=== PATIENT | male | born 1965 | race Caucasian/White ===

== ENCOUNTER 2017-01-01 17:21 | Emergency (ER) | payer SELFPAY ==
[~2017-01-01] VITALS: Ht 182.9 cm; Wt 63.5 kg
[2017-01-01 17:31] VITALS: BP 154/78
== END 2017-01-01 17:52 | disposition home or self-care (01) ==
LOC: ER 17:22
DX: T65.891A Toxic effect of other specified substances, accidental (unintentional), initial encounter (principal); S60.512A Abrasion of left hand, initial encounter; S60.511A Abrasion of right hand, initial encounter; F17.200 Nicotine dependence, unspecified, uncomplicated; X58.XXXA Exposure to other specified factors, initial encounter; Y93.89 Activity, other specified; Y92.89 Other specified places as the place of occurrence of the external cause; Y99.9 Unspecified external cause status
CPT/HCPCS: 99283; 99406; A4606; Z7610

== ENCOUNTER 2017-10-22 23:16 | Emergency (ER) | payer SELFPAY ==
[~2017-10-22] VITALS: Ht 177.8 cm; Wt 72.6 kg
--- NOTE | 2017-10-22 23:16 | NUR ---
[id number] FROM [place] FOR ETOH. VSS NAD. BS IS 112. WILL CONTINUE TO MONITOR FOR ANY CHANGES DURING THE SHIFT.
[2017-10-22 23:28] VITALS: BP 109/74
== END 2017-10-23 04:52 | disposition home or self-care (01) ==
LOC: ER 23:17
DX: F10.129 Alcohol abuse with intoxication, unspecified (principal); F17.200 Nicotine dependence, unspecified, uncomplicated; Z60.2 Problems related to living alone; Z87.09 Personal history of other diseases of the respiratory system
CPT/HCPCS: 82962 ×2; 99283; A4606; Z7610

== ENCOUNTER 2019-07-06 23:27 | Emergency (ER) | payer SELFPAY ==
[~2019-07-06] VITALS: Ht 182.9 cm; Wt 68.0 kg
[2019-07-07] MEDS ORDERED: MORPHINE SULFATE INJ 2 MG/ML DISP.SYRIN IV ONE
[2019-07-07] MEDS ORDERED: ONDANSETRON HCL/PF 4 MG/2 ML VIAL IVP ONE
[2019-07-07] MEDS ORDERED: IV NS 0.9% 500 ML BAG IV ONE
[2019-07-07 00:07] LABS: BASOPHILS # (AUTO) 0.2 /CMM (0.0-0.2); BASOPHILS % (AUTO) 2.8 % (0.0-2.0); EOSINOPHILS % (AUTO) 4.1 % (0.0-6.0); HEMATOCRIT 39 % (39-51); HEMOGLOBIN 13.1 g/dL (13.5-17.5); LYMPHOCYTES # (AUTO) 3.5 /CMM (0.8-4.8); LYMPHOCYTES % (AUTO) 43.9 % (20.0-44.0); MEAN CORPUSCULAR HGB CONC 34 g/dl (31.0-36.0); MEAN CORPUSCULAR VOLUME 98 fL (80-96); MONOCYTES # (AUTO) 0.7 /CMM (0.1-1.30); MONOCYTES % (AUTO) 9.2 % (2.0-12.0); NEUTROPHILS # (AUTO) 3.2 /CMM (1.8-8.9); PLATELET COUNT (AUTO) 239 /CMM (150-450); RED BLOOD CELL COUNT(AUTO) 3.95 MIL/uL (4.5-6.0)
[2019-07-07] MEDS ORDERED: ONDANSETRON HCL/PF 4 MG/2 ML VIAL ONE (00:07)
[2019-07-07] MEDS ORDERED: NAPROXEN 250 MG TABLET ONE (00:10)
[2019-07-07 00:14] LABS: CALCIUM, SERUM 8.5 mg/dL (8.5-10.1); POTASSIUM 3.2 mmol/L (3.5-5.1)
[2019-07-07 00:15] LABS: APPEARANCE,URINE Clear (CLEAR); BILIRUBIN,URINE Negative (NEGATIVE); BLOOD, URINE Negative Ery/uL (NEGATIVE); COLOR,URINE Yellow (YELLOW); KETONES,URINE Negative (NEGATIVE); LEUKOCYTE ESTERASE ,URINE Negative (NEGATIVE); NITRITE, URINE Negative (NEGATIVE); PH,URINE 6.5 (5.0-8.0); PROTEIN,URINE Negative (NEGATIVE); UGLUCOSE Negative (NEGATIVE); UROBILINOGEN,URINE 0.2 EU/dL (0.2)
--- NOTE | 2019-07-07 00:15 | NUR ---
PT PRESENTED TO THE ER WITH A C/O ABD PAIN WITH N/V. PT AMBULATED TO THE BATHROOM AND A URINE SAMPLE WAS OBTAINED. PT THEN WALKED TO ER 1 WITH A STEADY GAIT. PT WAS PLACED ON THE MONITOR AND CONTINUOUS PULSE OX.
--- NOTE | 2019-07-07 00:19 | NUR ---
PT REC'D MEDICATION ORDERED. PT THEN LEFT FOR CT VIA WC,
[2019-07-07 00:20] LABS: ALBUMIN 3.4 g/dL (3.4-5.0); BILIRUBIN,TOTAL 0.1 mg/dL (0.2-1.0); TOTAL PROTEIN, SERUM 7.4 g/dL (6.4-8.2)
[2019-07-07] MEDS ORDERED: NAPROXEN 250 MG TABLET PO ONE (00:30)
--- NOTE | 2019-07-07 02:36 | NUR ---
Patient discharged to home in stable condition. Written and verbal after care instructions given. Patient verbalizes understanding of instruction AND RX. PT IS HOMELESS AND PT STATED THAT HE HAS A PLACE WHERE HE LIVES. PT REC'D HOMELESS HALF-WAY INFORMATION AND A TAP CARD. PT ALSO REC'D FOOD, HYGIENE PRODUCTS, AND SOCKS. PT SIGNED THE HOMELESS WAIVER AND IS WAITING IN THE LOBBY UNTIL THE BUSES ARE RUNNING.
[2019-07-07 02:38] VITALS: BP 109/77
== END 2019-07-07 02:43 | disposition home or self-care (01) ==
LOC: ER 23:31
DX: K52.9 Noninfective gastroenteritis and colitis, unspecified (principal); F10.10 Alcohol abuse, uncomplicated; F17.200 Nicotine dependence, unspecified, uncomplicated; Y90.9 Presence of alcohol in blood, level not specified; Z60.2 Problems related to living alone
CPT/HCPCS: 36415; 74176; 80048; 80076; 81001; 83690; 85025; 85730; 96361; 96374; 99284; J2405; J7040; 81000-TC

== ENCOUNTER 2019-10-07 02:23 | Inpatient (IN) | payer MEDICAID ==
[~2019-10-07] VITALS: Ht 182.9 cm; Wt 68.0 kg
[2019-10-07] MEDS ORDERED: ONDANSETRON HCL/PF 4 MG/2 ML VIAL ONE (03:16)
--- NOTE | 2019-10-07 03:27 | NUR ---
PATIENT CAME TO ER BED 9 C/O HEADACHE, NAUSEA, AND ABDOMINAL PAIN RLQ. PATIENT STATES THAT HE HAS BEEN HAVING NAUSEA AND VOMITING SINCE 3 HOURS AGO. PATIENT STATES THAT HE TOOK NAPROXEN 10 HOURS AGO. AAOX4. NO SOB. BREATHING EVENLY AND UNLABORED ON ROOM AIR. CONNECTED TO MONITOR.
--- NOTE | 2019-10-07 03:29 | NUR ---
BLOOD DRAWN AND SENT TO LAB.
[2019-10-07] MEDS ORDERED: LORAZEPAM INJ 2 MG/ML VIAL IV ONE (03:30)
[2019-10-07] MEDS ORDERED: IV NS 0.9% 1,000 ML BAG IV ONE (03:30)
[2019-10-07] MEDS ORDERED: ONDANSETRON HCL/PF 4 MG/2 ML VIAL IVP ONE (03:30)
[2019-10-07] MEDS ORDERED: HALOPERIDOL LACTATE INJ 5 MG/ML VIAL IM ONE (03:30)
[2019-10-07 03:31] LABS: BASOPHILS # (AUTO) 0.2 /CMM (0.0-0.2); EOSINOPHILS % (AUTO) 5.6 % (0.0-6.0); HEMATOCRIT 41 % (39-51); HEMOGLOBIN 13.6 g/dL (13.5-17.5); LYMPHOCYTES # (AUTO) 3.7 /CMM (0.8-4.8); LYMPHOCYTES % (AUTO) 43.2 % (20.0-44.0); MEAN CORPUSCULAR HGB CONC 34 g/dl (31.0-36.0); MEAN CORPUSCULAR VOLUME 97 fL (80-96); MONOCYTES # (AUTO) 0.6 /CMM (0.1-1.30); MONOCYTES % (AUTO) 6.5 % (2.0-12.0); NEUTROPHILS # (AUTO) 3.7 /CMM (1.8-8.9); NEUTROPHILS % (AUTO) 42.7 % (43.0-81.0); PLATELET COUNT (AUTO) 258 /CMM (150-450); RED BLOOD CELL COUNT(AUTO) 4.17 MIL/uL (4.5-6.0); WHITE BLOOD COUNT (AUTO) 8.6 K/uL (4.3-11.0)
[2019-10-07 04:06] LABS: CALCIUM, SERUM 8.7 mg/dL (8.5-10.1); CHLORIDE 106 mmol/L (98-107); CREATININE 1.1 mg/dL (0.6-1.3); POTASSIUM 3.7 mmol/L (3.5-5.1); UREA NITROGEN, BLOOD 12 mg/dL (7-18)
[2019-10-07 04:12] LABS: ALBUMIN 3.8 g/dL (3.4-5.0); ALKALINE PHOSPHATASE 77 U/L (46-116); BILIRUBIN,DIRECT 0.1 mg/dL (0.0-0.2); BILIRUBIN,TOTAL 0.2 mg/dL (0.2-1.0)
[2019-10-07] MEDS ORDERED: CIPROFLOXACIN IV RTU 200 ML IV ONE (04:47)
[2019-10-07] MEDS ORDERED: METRONIDAZOLE 500MG/ NS 100ML 100 ML IV ONE (04:48)
[2019-10-07] MEDS ORDERED: KETOROLAC TROMETHAMINE INJ 30 MG/ML VIAL ONE (04:53)
[2019-10-07 05:00] LABS: LIPASE 1321 U/L (73-393)
[2019-10-07] MEDS ORDERED: KETOROLAC TROMETHAMINE INJ 30 MG/ML VIAL IV ONE (05:00)
[2019-10-07] MEDS ORDERED: MORPHINE SULFATE INJ 2 MG/ML DISP.SYRIN IV ONE (05:00)
[2019-10-07] MEDS ORDERED: CIPROFLOXACIN IV RTU 400 MG in PREMIX 1 EA IV SCH (05:00)
[2019-10-07] MEDS: METRONIDAZOLE 500MG/ NS 100ML 500 MG in PREMIX 1 EA IV SCH ×3 (05:05→20:51)
[2019-10-07 05:47] LABS: ALANINE AMINOTRANSFERASE 25 U/L (12-78); ASPARTATE AMINOTRANSFERASE 17 U/L (15-37); CARBON DIOXIDE 22 mmol/L (21-32); GLUCOSE 98 mg/dL (74-106); SODIUM SERUM 143 mmol/L (136-145); TOTAL PROTEIN, SERUM 7.5 g/dL (6.4-8.2)
--- NOTE | 2019-10-07 06:10 | NUR ---
REPORT GIVEN TO LISA ERICKSON FOR ANALY.
--- NOTE | 2019-10-07 06:30 | NUR ---
RN NOTES Received patient from ER via gurney. Transferred to bed 322-2 comfortably. Patient noted ambulatory, steady gait. On RA, no SOB/respiratory distress noted. Afebrile, VSS. No complaints made at this time. Admitting MD was notified per ER nurse, awaiting for admission orders at this time. Instructed patient on NPO due to N/V. With ongoing Cipro IV from ER infusing well. Kept on bed comfortably, call light within easy reach. On fall and aspiration precautions. Endorsed to the next shift.
[2019-10-07 07:30] VITALS: BP 83/51
[2019-10-07] MEDS ORDERED: MORPHINE SULFATE INJ 2 MG/ML DISP.SYRIN IV PRN (07:30)
[2019-10-07] MEDS ORDERED: ACETAMINOPHEN 650 MG/SUPP.RECT RC PRN (07:30)
[2019-10-07] MEDS ORDERED: Potassium Chloride 20 MEQ in IV D5/ 0.9% NACL 1,000 ML IV PRN (07:30)
[2019-10-07] MEDS ORDERED: LORAZEPAM INJ 2 MG/ML VIAL IV PRN (07:30)
[2019-10-07] MEDS ORDERED: ONDANSETRON HCL/PF 4 MG/2 ML VIAL IVP PRN (07:30)
--- NOTE | 2019-10-07 08:00 | NUR ---
MS RN OPENING NOTES RECEIVED PATIENT FROM DRILLING MACHINE OPERATOR NURSE IN BED, ASLEEP, BREATHING AT ROOM AIR, NO SIGNS OF RESPIRATORY DISTRESS, RAC 20G WITH CIPRO ONGOING FROM E.R., SIDE RAILS UP.
[2019-10-07] MEDS: LEVOFLOXACIN 500 MG /D5W 100ML 500 MG in PREMIX 1 EA IV SCH (09:24)
[2019-10-07] MEDS: MULTIVITAMINS,THERAGRAN 1 UDTAB TABLET PO SCH (09:25)
[2019-10-07] MEDS: FOLIC ACID 1 MG TABLET PO SCH (09:25)
[2019-10-07] MEDS: THIAMINE HCL 100 MG TABLET PO SCH (09:25)
[2019-10-07] MEDS: PANTOPRAZOLE 40 MG VIAL IV SCH (09:25)
--- NOTE | 2019-10-07 14:30 | NUR ---
MS RN NOTES INFORMED DR. MAZA REGARDING PATIENT'S STOOL CULTURE AND C. DIFF. SHE SAID TO NOT TAKE IT SAMPLE SINCE THE PATIENT DOESN'T HAVE ANY DIARRHEA.
--- NOTE | 2019-10-07 18:51 | NUR ---
MS RN CLOSING NOTES ENDORSED PATIENT TO [facility] ANALYST NURSE IN BED, AWAKE, CONSCIOUS, COOPERATIVE, AMBULATORY, RAC 20G, NO REDNESS OR INFILTRATION NOTED, SIDE RAILS UP FOR SAFETY.
--- NOTE | 2019-10-07 19:15 | NUR ---
MS RN: RECEIVED PATIENT Patient in bed, awake, A/O x4. On Clear liquids, denies abdominal pain. IVF infusing. Maintained safety.
[2019-10-07 20:00] VITALS: BP 105/72
[2019-10-07 20:30] VITALS: BP 105/72
[2019-10-08] MEDS ORDERED: POTASSIUM CL. PREMIX PERIPHER. 0 ML ONE (01:08)
[2019-10-08] MEDS ORDERED: IV PREMIX D5 1/2NS + KCL 1,000 ML IV ONE (01:12)
[2019-10-08] MEDS ORDERED: Potassium Chloride 20 MEQ in IV D5/0.45 NACL 1,000 ML IV PRN (02:00)
[2019-10-08] MEDS: METRONIDAZOLE 500MG/ NS 100ML 500 MG in PREMIX 1 EA IV SCH ×2 (05:03→12:54)
--- NOTE | 2019-10-08 06:33 | NUR ---
MS RN: END OF SHIFT REPORT Patient in bed, awake, report slept well last night. Clear liquids, no c/o nausea no vomiting. Denies abdominal pain, no BM this shift. IVF infusing, IV antibiotic as scheduled, afebrile overnight. Sacrum; Buttocks redness/rash, wound consult to follow. Will endorse to oncoming RN.
--- NOTE | 2019-10-08 07:12 | NUR ---
MS RN OPENING NOTES RECEIVED PT IN BED, AWAKE AT THIS TIME. AOX4. BREATHING EVEN AND UNLABORED. PT SATURATING WELL ON RA AT 100%, NO S/S OF ANY ACUTE DISTRESS, NO C/O PAIN AT THIS TIME.IV ACCESS TO RAC G#20 INTACT AND PATENT. PT ABLE TO VERBALIZE NEED. SAFETY MEASURES IN PLACE. BED IN LOCKED LOWEST POSITION, SIDE RAILS UP X2, CALL LIGHT WITHIN REACH. WILL CONTINUE TO MONITOR
[2019-10-08 07:25] LABS: BASOPHILS # (AUTO) 0.1 /CMM (0.0-0.2); BASOPHILS % (AUTO) 1.3 % (0.0-2.0); EOSINOPHILS % (AUTO) 5.3 % (0.0-6.0); HEMATOCRIT 37 % (39-51); HEMOGLOBIN 12.3 g/dL (13.5-17.5); LYMPHOCYTES # (AUTO) 2.4 /CMM (0.8-4.8); MEAN CORPUSCULAR HGB CONC 33 g/dl (31.0-36.0); MEAN CORPUSCULAR VOLUME 98 fL (80-96); MONOCYTES # (AUTO) 0.8 /CMM (0.1-1.30); MONOCYTES % (AUTO) 10.3 % (2.0-12.0); NEUTROPHILS # (AUTO) 3.8 /CMM (1.8-8.9); NEUTROPHILS % (AUTO) 51.1 % (43.0-81.0); PLATELET COUNT (AUTO) 220 /CMM (150-450); RED BLOOD CELL COUNT(AUTO) 3.77 MIL/uL (4.5-6.0); WHITE BLOOD COUNT (AUTO) 7.5 K/uL (4.3-11.0)
[2019-10-08 07:42] LABS: CALCIUM, SERUM 8.3 mg/dL (8.5-10.1); CREATININE 0.9 mg/dL (0.6-1.3); MAGNESIUM 2.1 mg/dL (1.8-2.4); PHOSPHORUS 3.2 mg/dL (2.5-4.9); POTASSIUM 3.6 mmol/L (3.5-5.1)
[2019-10-08 07:58] LABS: ALBUMIN 2.8 g/dL (3.4-5.0); BILIRUBIN,DIRECT 0.1 mg/dL (0.0-0.2); BILIRUBIN,TOTAL 0.3 mg/dL (0.2-1.0); TOTAL PROTEIN, SERUM 5.8 g/dL (6.4-8.2)
[2019-10-08 08:00] VITALS: BP 99/64
[2019-10-08] MEDS: LEVOFLOXACIN 500 MG /D5W 100ML 500 MG in PREMIX 1 EA IV SCH (08:58)
[2019-10-08] MEDS: THIAMINE HCL 100 MG TABLET PO SCH (08:59)
[2019-10-08] MEDS: MULTIVITAMINS,THERAGRAN 1 UDTAB TABLET PO SCH (08:59)
[2019-10-08] MEDS: PANTOPRAZOLE 40 MG VIAL IV SCH (08:59)
[2019-10-08] MEDS: FOLIC ACID 1 MG TABLET PO SCH (08:59)
--- NOTE | 2019-10-08 12:27 | NUR ---
PER DR MAZA, ADVANCE PT TO SOFT DIET. ORDERS CARRIED OUT AND IMPLEMENTED
--- NOTE | 2019-10-08 13:00 | NUR ---
PT ADVANCED ON SOFT DIET PER DR MAZA'S ORDER. PT TOLERATING WELL WITH NO S/S OF ASPIRATION. WILL CONTINUE TO MONITOR
[2019-10-08 16:00] VITALS: BP 102/59
--- NOTE | 2019-10-08 18:00 | NUR ---
MS ROAD MACHINE RUNNER NOTES PT DISCHARGED AT THIS TIME TO HOME.. PT STABLE AT THIS TIME. V/S STABLE, NO SOB NOTED, NO C/O PAIN AT THIS TIME. IV REMOVED, SKIN IN TACT, NO BLEEDING NOTED. DRESSING IN PLACE. ALL BELONGINGS ACCOUNTED FOR, SIGNED AND FILED. DISCHARGE TEACHINGS AND DOCUMENTATION PROVIDED AND HANDED TO PATIENT. PT VERBALIZED UNDERSTANDING. PICTURES TAKEN AND FILED. PT PROVIDED MEANS OF TRANSPORTATION VIA TAP CARD. PT ACCOMPANIED TO LOBBY BY YEHUDA SAENZ.
--- NOTE | 2019-10-08 20:25 | NUR ---
MS PULP MILL SUPERVISOR NOTES PATIENT DISCHARGED, ACCOMPANIED BY CUSTOMER MANAGEMENT SPECIALIST TO WALK DOWNSTAIRS. PATIENT RECEIVED TAP CARD AND WILL BE USING BUS. MEDICAL BAND REMOVED, IV ACCESS REMOVED. PATIENT HAD ALL BELONGINGS WITH HIM. PATIENT HAD DISCHARGE PAPERWORK. VSS STABLE, PATIENT AMBULATORY.
== END 2019-10-08 20:00 | disposition home or self-care (01) | DRG 282 ==
LOC: ER 02:26 → MED 04:52
PROVIDERS: ADMIT Student in an Organized Health Care Education/Training Program; ATTEND Student in an Organized Health Care Education/Training Program
DX: K85.90 Acute pancreatitis without necrosis or infection, unspecified (principal); N28.1 Cyst of kidney, acquired; F10.10 Alcohol abuse, uncomplicated; G43.909 Migraine, unspecified, not intractable, without status migrainosus; Z87.81 Personal history of (healed) traumatic fracture; Z59.0 Homelessness; K52.9 Noninfective gastroenteritis and colitis, unspecified
CPT/HCPCS: 36415; 71045-TC; 80048-TC; 80076-TC; 83690-TC; 83735-TC; 84100-TC; 84484-TC; 85025-TC; 87081-TC; A4216; C9113; G0378; J0744; J1885; J1956; J2405; J3480; J3490; J7030; J7042; J7050

== ENCOUNTER 2019-11-22 07:24 | Emergency (ER) | payer MEDICAID ==
[~2019-11-22] VITALS: Ht 182.9 cm; Wt 68.0 kg
--- NOTE | 2019-11-22 07:30 | NUR ---
came in for abdominal pain since last night, 02/14 pain scale, -N/V, -D, last brenda drink 2 days ago, to ER bed 11, hooked to monitor, changed to hosp gown, warm blanket provided, patient aao x 4, breathing even and unlabored. awaiting MD luo.
--- NOTE | 2019-11-22 07:42 | NUR ---
Dr Figueroa at bedside for eval.
--- NOTE | 2019-11-22 07:54 | NUR ---
urine sample collected and sent to lab.
[2019-11-22] MEDS ORDERED: ONDANSETRON HCL/PF 4 MG/2 ML VIAL ONE ×2 (07:58→11:22)
[2019-11-22 07:59] LABS: APPEARANCE,URINE Clear (CLEAR); BILIRUBIN,URINE Negative (NEGATIVE); BLOOD, URINE Negative Ery/uL (NEGATIVE); COLOR,URINE Yellow (YELLOW); KETONES,URINE Negative (NEGATIVE); LEUKOCYTE ESTERASE ,URINE Negative (NEGATIVE); NITRITE, URINE Negative (NEGATIVE); PROTEIN,URINE 30 mg/dl (NEGATIVE); UGLUCOSE Negative (NEGATIVE)
[2019-11-22 08:00] LABS: BACTERIA,URINE None seen /HPF (None Seen); RBC,URINE 0-2 /HPF (0-2); SQUAMOUS EPITHELIAL CELL,UR None Seen /HPF (None Seen); WBC,URINE 0-2 /HPF (0-3)
[2019-11-22] MEDS ORDERED: ONDANSETRON HCL/PF 4 MG/2 ML VIAL IVP ONE (08:00)
[2019-11-22] MEDS ORDERED: IV NS 0.9% 1,000 ML BAG IV ONE (08:00)
[2019-11-22 08:42] LABS: BASOPHILS # (AUTO) 0.2 /CMM (0.0-0.2); BASOPHILS % (AUTO) 2.7 % (0.0-2.0); EOSINOPHILS % (AUTO) 5.4 % (0.0-6.0); HEMATOCRIT 43 % (39-51); HEMOGLOBIN 14.6 g/dL (13.5-17.5); LYMPHOCYTES # (AUTO) 2.8 /CMM (0.8-4.8); LYMPHOCYTES % (AUTO) 34.2 % (20.0-44.0); MEAN CORPUSCULAR HGB CONC 34 g/dl (31.0-36.0); MEAN CORPUSCULAR VOLUME 95 fL (80-96); MONOCYTES # (AUTO) 0.7 /CMM (0.1-1.30); MONOCYTES % (AUTO) 9.1 % (2.0-12.0); NEUTROPHILS # (AUTO) 3.9 /CMM (1.8-8.9); NEUTROPHILS % (AUTO) 48.6 % (43.0-81.0); PLATELET COUNT (AUTO) 268 /CMM (150-450); RED BLOOD CELL COUNT(AUTO) 4.52 MIL/uL (4.5-6.0); WHITE BLOOD COUNT (AUTO) 8.1 K/uL (4.3-11.0)
[2019-11-22 08:49] LABS: CALCIUM, SERUM 8.6 mg/dL (8.5-10.1); POTASSIUM 3.1 mmol/L (3.5-5.1)
[2019-11-22 08:54] LABS: ALBUMIN 3.7 g/dL (3.4-5.0); BILIRUBIN,DIRECT 0.1 mg/dL (0.0-0.2); BILIRUBIN,TOTAL 0.5 mg/dL (0.2-1.0); TOTAL PROTEIN, SERUM 7.2 g/dL (6.4-8.2)
[2019-11-22] MEDS ORDERED: IOHEXOL-300 100 ML VIAL IV ONE (09:13)
--- NOTE | 2019-11-22 11:25 | NUR ---
IV removed. Catheter intact and site benign. Pressure and 4x4 applied to site. No bleeding noted. Patient given written and verbal discharge instructions. Patient verbalizes understanding of instructions. Patient is ambulatory with steady gait. Refuses offer of retirement placement. Patient given list of available shelters in surrounding area. Patient in proper clothing upon discharge. All belongings returned, name band removed.
[2019-11-22 11:28] VITALS: BP 123/69
[2019-11-22] MEDS ORDERED: ONDANSETRON HCL/PF - ER 4 MG/2 ML VIAL IV ONE (11:30)
== END 2019-11-22 11:28 | disposition home or self-care (01) ==
LOC: ER 07:24
DX: K52.9 Noninfective gastroenteritis and colitis, unspecified (principal); G43.909 Migraine, unspecified, not intractable, without status migrainosus; F17.200 Nicotine dependence, unspecified, uncomplicated; Z60.2 Problems related to living alone
CPT/HCPCS: 36415; 74177; 80048; 80076; 81001; 83690; 85025; 96361; 96374; 96376; 99285; J2405 ×3; J7030; Q9967; 81000-TC

== ENCOUNTER 2020-01-07 04:46 | Inpatient (IN) | payer MEDICAID, SELFPAY ==
[~2020-01-07] VITALS: Ht 182.9 cm; Wt 65.8 kg
--- NOTE | 2020-01-07 04:53 | NUR ---
PT BIBA FROM OUTSIDE THE [facility] C/O MID ABD PAIN RADIATING TO THE RLQ FOR A COUPLE OF WEEKS. WORSE TODAY +N/V. PT AAOX4, VSS, RESPIRATIONS EVEN AND UNLABORED ON RA W/ NAD NOTED. PT ADMITS TO DRINKING ALCOHOL TODAY
[2020-01-07] MEDS ORDERED: KETOROLAC TROMETHAMINE 15 MG/ML VIAL ONE (04:56)
[2020-01-07] MEDS ORDERED: ONDANSETRON HCL/PF 4 MG/2 ML VIAL ONE (04:57)
[2020-01-07] MEDS ORDERED: KETOROLAC TROMETHAMINE INJ 30 MG/ML VIAL IV ONE (05:00)
[2020-01-07] MEDS ORDERED: IV NS 0.9% 1,000 ML BAG IV ONE (05:00)
[2020-01-07] MEDS ORDERED: ONDANSETRON HCL/PF 4 MG/2 ML VIAL IVP ONE (05:00)
--- NOTE | 2020-01-07 05:02 | NUR ---
PT MEDICATED ORDERED
--- NOTE | 2020-01-07 05:07 | NUR ---
BLOOD DRAWN AND SENT WITH STABILIZER OPERATOR.
[2020-01-07 05:09] LABS: BASOPHILS # (AUTO) 0.1 /CMM (0.0-0.2); BASOPHILS % (AUTO) 1.8 % (0.0-2.0); EOSINOPHILS % (AUTO) 4.8 % (0.0-6.0); HEMATOCRIT 43 % (39-51); HEMOGLOBIN 14.6 g/dL (13.5-17.5); LYMPHOCYTES # (AUTO) 3.3 /CMM (0.8-4.8); LYMPHOCYTES % (AUTO) 43.1 % (20.0-44.0); MEAN CORPUSCULAR HGB CONC 34 g/dl (31.0-36.0); MEAN CORPUSCULAR VOLUME 94 fL (80-96); MONOCYTES # (AUTO) 0.5 /CMM (0.1-1.30); MONOCYTES % (AUTO) 6.6 % (2.0-12.0); NEUTROPHILS # (AUTO) 3.4 /CMM (1.8-8.9); NEUTROPHILS % (AUTO) 43.7 % (43.0-81.0); PLATELET COUNT (AUTO) 259 /CMM (150-450); RED BLOOD CELL COUNT(AUTO) 4.58 MIL/uL (4.5-6.0); WHITE BLOOD COUNT (AUTO) 7.8 K/uL (4.3-11.0)
[2020-01-07] MEDS ORDERED: IV NS 0.9% 250 ML IV ONE (05:26)
[2020-01-07] MEDS ORDERED: IOHEXOL-300 100 ML VIAL IV ONE (05:26)
[2020-01-07 05:34] LABS: ALBUMIN 3.8 g/dL (3.4-5.0); BILIRUBIN,DIRECT 0.1 mg/dL (0.0-0.2); BILIRUBIN,TOTAL 0.3 mg/dL (0.2-1.0); CREATININE 1.2 mg/dL (0.6-1.3); POTASSIUM 3.2 mmol/L (3.5-5.1); TOTAL PROTEIN, SERUM 7.6 g/dL (6.4-8.2)
[2020-01-07] MEDS ORDERED: MORPHINE SULFATE INJ 4 MG/ML DISP.SYRIN ONE (05:59)
[2020-01-07] MEDS ORDERED: IV NS 0.9% 1,000 ML IV ONE (06:00)
[2020-01-07] MEDS ORDERED: MORPHINE SULFATE INJ 2 MG/ML DISP.SYRIN IV ONE (06:00)
--- NOTE | 2020-01-07 06:02 | NUR ---
PT RETURNED FROM CT
--- NOTE | 2020-01-07 06:05 | NUR ---
US AT BEDSIDE
--- NOTE | 2020-01-07 06:19 | NUR ---
US PROCEDURE FINISHED
--- NOTE | 2020-01-07 06:22 | NUR ---
CORONAVIRUS SWAB COLLECTED AND SENT TO THE LAB.
[2020-01-07] MEDS ORDERED: LORAZEPAM INJ 2 MG/ML VIAL IV PRN (07:00)
[2020-01-07] MEDS ORDERED: ACETAMINOPHEN 650 MG/SUPP.RECT RC PRN (07:00)
[2020-01-07] MEDS ORDERED: ONDANSETRON HCL/PF 4 MG/2 ML VIAL IVP PRN (07:00)
--- NOTE | 2020-01-07 07:06 | NUR ---
REPORT GIVEN TO DRE MCNEIL FOR ANALY
--- NOTE | 2020-01-07 07:17 | NUR ---
Patient asleep but arousable for admission per report from zoraida ERICKSON
--- NOTE | 2020-01-07 08:47 | NUR ---
Called report to MS RN Brendon aware paln of care non question @ this time
--- NOTE | 2020-01-07 08:49 | NUR ---
Noted no nause and vomit @ this time ,trasfer patient with face mask on .
--- NOTE | 2020-01-07 08:55 | NUR ---
M/S CONDOMINIUM PROPERTY MANAGER NOTES RECEIVED PT ON BED, AXO4, RESPONSIVE TO ALL STIMULI, ROMANSH SPEAKING FROM ER DUE TO ACUTE PANCREATITIS D/T C/O ABD PAIN X 2WKS AND NAUSEA. RESPIRATION EVEN AND NONLABORED WITH NO ACUTE RESPIRATORY DISTRESS, PT STATED HE ONLY GETS SOB IF AMBULATING FOR LONG PERIOD TIME, COMFORTABLE AT THIS TIME. SKIN WARM TO TOUCH, DRY AND INTACT. PT REFUSED BODY CHECK STATING HE HAS NO OPEN WOUND, YEHUDA RODRIGUEZ ON BEDSIDE. PT DENIES PAIN AND DISCOMFORT. DENIES NAUSEA / ABD PAIN. IV SITE AT LEFT AC #18 PATENT IN FLUSHING, H/L. BE DIN LOW LOCKED POSITION, SR X2 UP FOR SAFETY, CALL LIGHT WITHIN REACH. ON NPO STATUS. PT UNDERSTOOD. WILL CONTINUE TO EVALUATE CARE
--- NOTE | 2020-01-07 09:10 | NUR ---
M/S RN NOTES PAGED DR. KILPATRICK, PT ON FLOOR AT [phone].
[2020-01-07] MEDS: PANTOPRAZOLE 40 MG VIAL IV SCH (09:14)
[2020-01-07] MEDS ORDERED: Potassium Chloride 20 MEQ in IV D5/0.45 NACL 1,000 ML IV PRN (09:30)
--- NOTE | 2020-01-07 09:30 | NUR ---
M/S RN NOTES PT SEEN AND EVALUATED BY DR. CHAVEZ, NO ORDER OBTAINED
--- NOTE | 2020-01-07 13:15 | NUR ---
M/S RN NOTES PT ASLEEP COMFORTABLE, EASILY AROUSED. ON NPO, CONTINUOUS IV ORDERED. CONTINUE TO MONITOR CARE. CALL LIGHT WITHIN REACHED
[2020-01-07 16:00] VITALS: BP 96/64
[2020-01-07] MEDS: MORPHINE SULFATE INJ 2 MG/ML DISP.SYRIN IV PRN (17:47)
--- NOTE | 2020-01-07 18:47 | NUR ---
M/S RN CLOSING NOTES PT AAOX4. NO C/O OF SOB, TOLERATING RA SATING 99%. PAIN AT ABD PAIN RESOLVED AFTER ADMINISTERING MORPHINE 2 MG ORDERED, PT ASLEEP BY EASILY AROUSABLE. NO BM SINCE ADMISSION. IV SITE AT LEFT AC PATENT IN FLUSHING, SITE HAS NO S/SX OF INFILTRATION RUNNING D51/2 NS WITH KCL 20 MEQ AT 110 ML/HR. PT ON NPO STATUS. BED IN LOW LOCKED POSITION, SRX2 UP FOR SAFETY, CALL LIGHT WITHIN REACH. ENDORSED CARE TO NEXT SHIFT.
[2020-01-07 20:00] VITALS: BP 106/61
[2020-01-08] MEDS: MORPHINE SULFATE INJ 2 MG/ML DISP.SYRIN IV PRN ×3 (00:52→14:17)
--- NOTE | 2020-01-08 06:21 | NUR ---
MS RN NOTES AWAKE & RESPONSIVE. NOT IN ANY DISTRESS. NO SOB NOTED. DENIES ANY PAIN OR DISCOMFORT AT THIS TIME. WITH IVF INFUSING WELL. MONITORED ACCORDINGLY. CALL LIGHT WITHIN REACH. BED IN LOWEST POSITION. SR UP X 2 FOR SAFETY. WILL ENDORSE TO NEXT SHIFT.
[2020-01-08 07:01] LABS: BASOPHILS # (AUTO) 0.2 /CMM (0.0-0.2); BASOPHILS % (AUTO) 2.1 % (0.0-2.0); EOSINOPHILS % (AUTO) 6.5 % (0.0-6.0); HEMATOCRIT 40 % (39-51); HEMOGLOBIN 13.2 g/dL (13.5-17.5); LYMPHOCYTES % (AUTO) 34.7 % (20.0-44.0); MEAN CORPUSCULAR HGB CONC 33 g/dl (31.0-36.0); MEAN CORPUSCULAR VOLUME 95 fL (80-96); MONOCYTES # (AUTO) 0.8 /CMM (0.1-1.30); MONOCYTES % (AUTO) 9.2 % (2.0-12.0); NEUTROPHILS # (AUTO) 4.2 /CMM (1.8-8.9); NEUTROPHILS % (AUTO) 47.5 % (43.0-81.0); PLATELET COUNT (AUTO) 229 /CMM (150-450); RED BLOOD CELL COUNT(AUTO) 4.17 MIL/uL (4.5-6.0); WHITE BLOOD COUNT (AUTO) 8.8 K/uL (4.3-11.0)
[2020-01-08 07:19] LABS: ALBUMIN 2.9 g/dL (3.4-5.0); BILIRUBIN,TOTAL 0.4 mg/dL (0.2-1.0); CALCIUM, SERUM 8.4 mg/dL (8.5-10.1); MAGNESIUM 2.3 mg/dL (1.8-2.4); PHOSPHORUS 3.2 mg/dL (2.5-4.9); POTASSIUM 3.8 mmol/L (3.5-5.1); TOTAL PROTEIN, SERUM 6.2 g/dL (6.4-8.2)
--- NOTE | 2020-01-08 07:30 | NUR ---
RN OPENING NOTES RECEIVED PT IN BED. AWAKE ALERT AND ORIENTED X4. NO CARDIAC OR RESPIRATORY DISTRESS NOTED. NO SOB NOTED. SATURATING WELL ON ROOM AIR. IV ACCESS SITE NOTED AT LEFT AC G20. INTACT AND PATENT AND FLUSHING WELL. NO S/S OF INFECTION OR INFILTRATION NOTED. WITH IV FLUIDS D51/2 NS WITH KCL 20 MEQ AT 110 ML/HR. PT STILL NPO. SAFETY PRECAUTIONS IN PLACE. BED IN LOW LOCKED POSITION, SRX2 UP FOR SAFETY, CALL LIGHT WITHIN REACH. WILL CONT TO MONITOR.
[2020-01-08 08:00] VITALS: BP 102/56
[2020-01-08] MEDS: PANTOPRAZOLE 40 MG VIAL IV SCH (08:19)
--- NOTE | 2020-01-08 10:59 | NUR ---
Social service consult requested by MD for homelessness. 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 Patient admits to heavy EtOH abuse. CURRENCY COUNTER conducted chart review and called the pt on his bedside phone. CURRENCY COUNTER introduced self, explained the role of the SW and purpose of the call. Pt is alert and oriented x 4 with appropriate affect. Pt reports to be homeless for over five years and lives in a shed located at [facility] in [place]. Pt reports, he does not get any GR or food stamps. Pt reports, the restaurants provide him with free food. CURRENCY COUNTER encouraged pt to apply for GR and food stamps. CURRENCY COUNTER also encouraged pt to apply to [facility] for housing resources. Pt reports to drinking alcohol. Pt states, he was sober for two months and began binge drinking on Wednesday. Pt stated, he was feeling depressed but would not elaborate any further. Pt denies any psychiatric diagnoses or hospitalizations. Pt denies suicidal and homicidal ideations and states, he is not feeling depressed today. CURRENCY COUNTER provided active listening, supportive counseling, emotional support, validation of feelings and positive coping skills. CURRENCY COUNTER provided pt with Homeless Resources Related to Covid-19 and [facility]. Pt will require a TAP card upon discharge. Homeless Patient Waiver Form to be signed by the pt upon discharge. surgical services tech to remain available for support as needed.
--- NOTE | 2020-01-08 15:00 | NUR ---
WAIVER/BODY CHECK PT REFUSED BODY CHECK. HE STATES, JUST LET ME REST PLEASE. ALSO PT SIGNED THE HOMELESS WAIVER. AMBULATORY CARE NURSE HAD ALREADY CONSULTED. ACCORDING TO PT HE WISHES TO EAT DINNER HERE AND THEN HE WILL LEAVE. PROVIDED PT WITH THE TAP CARD WELL.
[2020-01-08 16:00] VITALS: BP 103/70
--- NOTE | 2020-01-08 17:00 | NUR ---
DISCHARGE PT DISCHARGED IN STABLE CONDITION. ALL D/C INSTRUCTIONS PROVIDED TO PT WELL D/C PAPERWORK. INVENTORY DONE WITH THE PRESENCE OF PT AND PT ACKNOWLEDGED THAT HE HAS ALL OF HIS BELONGINGS. NO CONCERNS NOTED. INSTRUCTED PT TO MAKE A F/U APPT WITH PCP. PT IS AOX4. NO CARDIAC OR RESPIRATORY DISTRESS NOTED. NO SOB NOTED. SATURATING WELL ON ROOM AIR. IV ACCESS SITE NOTED AT LEFT AC G20 WAS REMOVED. NO S/S OF BLEEDING NOTED. PT LEFT THE HOSPITAL IN STABLE CONDITION.
== END 2020-01-08 17:00 | disposition home or self-care (01) | DRG 282 ==
LOC: ER 04:49 → MED 08:39
PROVIDERS: ADMIT Nurse Practitioner Acute Care; ATTEND Nurse Practitioner Acute Care
DX: K85.20 Alcohol induced acute pancreatitis without necrosis or infection (principal); K65.9 Peritonitis, unspecified; Z59.0 Homelessness; N40.0 Benign prostatic hyperplasia without lower urinary tract symptoms; G43.909 Migraine, unspecified, not intractable, without status migrainosus; E87.6 Hypokalemia; Z87.81 Personal history of (healed) traumatic fracture; Z72.0 Tobacco use; Y90.9 Presence of alcohol in blood, level not specified; F10.20 Alcohol dependence, uncomplicated
CPT/HCPCS: 36415; 76705-TC; 80048-TC; 80053-TC; 80061-TC; 80076-TC; 83690-TC; 83735-TC; 84100-TC; 85025-TC; 87081-TC; C9113; G0378; J1885; J2270; J2405; J3480; J3490; J7030; J7050; Q9967

== ENCOUNTER 2020-10-27 02:14 | Emergency (ER) | payer MEDICAID, OTHER ==
[~2020-10-27] VITALS: Ht 182.9 cm; Wt 65.8 kg
[2020-10-27] MEDS ORDERED: LIDOCAINE VISCOUS 2% UD 15 ML UDC ONE (03:15)
[2020-10-27] MEDS ORDERED: MAG HYDROX/AL HYDROX/SIMETH 30 ML UDC ONE (03:15)
[2020-10-27] MEDS ORDERED: FAMOTIDINE/PF INJ 20 MG/2 ML VIAL IV ONE ×2 (03:16→03:30)
[2020-10-27] MEDS ORDERED: KETOROLAC TROMETHAMINE 15 MG/ML VIAL ONE (03:17)
[2020-10-27 03:30] LABS: BASOPHILS # (AUTO) 0.2 /CMM (0.0-0.2); BASOPHILS % (AUTO) 2.9 % (0.0-2.0); EOSINOPHILS % (AUTO) 5.9 % (0.0-6.0); HEMATOCRIT 43 % (39-51); HEMOGLOBIN 14.4 g/dL (13.5-17.5); LYMPHOCYTES # (AUTO) 3.5 /CMM (0.8-4.8); LYMPHOCYTES % (AUTO) 42.4 % (20.0-44.0); MEAN CORPUSCULAR HGB CONC 34 g/dl (31.0-36.0); MEAN CORPUSCULAR VOLUME 95 fL (80-96); MONOCYTES # (AUTO) 0.6 /CMM (0.1-1.30); MONOCYTES % (AUTO) 7.2 % (2.0-12.0); NEUTROPHILS # (AUTO) 3.5 /CMM (1.8-8.9); NEUTROPHILS % (AUTO) 41.6 % (43.0-81.0); PLATELET COUNT (AUTO) 273 /CMM (150-450); RED BLOOD CELL COUNT(AUTO) 4.51 MIL/uL (4.5-6.0); WHITE BLOOD COUNT (AUTO) 8.4 K/uL (4.3-11.0)
[2020-10-27] MEDS ORDERED: MAG HYDROX/AL HYDROX/SIMETH 30 ML UDC PO ONE (03:30)
[2020-10-27] MEDS ORDERED: KETOROLAC TROMETHAMINE INJ 30 MG/ML VIAL IV ONE (03:30)
--- NOTE | 2020-10-27 03:33 | NUR ---
PATIENT TO ER BED 11 C/O MEDIAL ABDOMINAL PAIN SINCE 2x DAYS AGO. PATIENT STATES HE HAS HX OF PANCREATITIS AND COLITIS. PATIENT IS AAOX4. DENIES SOB. BREATHING EVENLY AND UNLABORED ON ROOM AIR. CONNECTED TO THE MONITOR.
[2020-10-27 04:12] LABS: CREATININE 1.1 mg/dL (0.6-1.3)
[2020-10-27] MEDS ORDERED: CT SWABBABLE VALVE TRANS SET 1 EA INFUS.SET MC ONE (04:21)
[2020-10-27] MEDS ORDERED: IV NS 0.9% 250 ML IV ONE (04:21)
[2020-10-27] MEDS ORDERED: IOHEXOL-300 100 ML VIAL IV ONE (04:21)
[2020-10-27 04:25] LABS: ALBUMIN 3.8 g/dL (3.4-5.0); BILIRUBIN,DIRECT 0.1 mg/dL (0.0-0.2); BILIRUBIN,TOTAL 0.3 mg/dL (0.2-1.0); TOTAL PROTEIN, SERUM 7.6 g/dL (6.4-8.2)
[2020-10-27] MEDS ORDERED: OMEP20CA15 PO (06:10)
--- NOTE | 2020-10-27 07:24 | NUR ---
IV removed. Catheter intact and site benign. Pressure and 4x4 applied to site. No bleeding noted.
--- NOTE | 2020-10-27 07:24 | NUR ---
Patient discharged to home in stable condition. Written and verbal after care instructions given. Patient verbalizes understanding of instruction.
[2020-10-27 07:25] VITALS: BP 121/76
== END 2020-10-27 07:25 | disposition home or self-care (01) ==
LOC: ER 02:15
DX: K86.1 Other chronic pancreatitis (principal); G43.909 Migraine, unspecified, not intractable, without status migrainosus; F17.200 Nicotine dependence, unspecified, uncomplicated; Z60.2 Problems related to living alone; Z79.899 Other long term (current) drug therapy
CPT/HCPCS: 36415; 74177; 80048; 80076; 83605; 83690; 85025; 96374; 96375; 99285; J1885; J3490; J7050; Q9967